=== PATIENT | male | born 1940 | race Caucasian/White ===

== ENCOUNTER 2021-11-11 06:11 | Inpatient (IN) | payer MEDICARE, OTHER ==
[2021-11-11] VITALS (13 sets, daily range): BP systolic 126–168; BP diastolic 63–92
[~2021-11-11] VITALS: Ht 175.3 cm; Wt 94.3 kg
[~2021-11-11 06:11] MED LIST: DICL1GEL72 EX; FLUT110A IN
[2021-11-11] MEDS ORDERED: ceFAZolin 1GM/50ML 100 ML IV ONE (06:23)
[2021-11-11] MEDS ORDERED: TRANEXAMIC ACID 20 ML ONE (06:48)
[2021-11-11] MEDS ORDERED: CELECOXIB 100 MG CAP PO ONE ×2 (07:00→07:30)
[2021-11-11] MEDS ORDERED: PREGABALIN CAPSULE 75 MG CAP PO ONE ×2 (07:00→07:30)
[2021-11-11] MEDS ORDERED: ACETAMINOPHEN IV 1000 MG/100ML (10MG/ML) IV ONE ×2 (07:00→07:30)
[2021-11-11] MEDS ORDERED: VANCOMYCIN HCL 1000 MG VL ONE (07:01)
[2021-11-11 07:27] LABS: Basophils # (auto) 0.1 10 ^3/uL (0-0.2); Basophils % (auto) 1.3 % (0.0-2.0); Eosinophils # (auto) 0.2 10 ^3/uL (0-0.8); Eosinophils % (auto) 4.2 % (0.0-7.0); Hematocrit 49.7 % (41.0-53.0); Hemoglobin 16.8 g/dL (13.5-17.5); Lymphocytes # (auto) 2.6 10 ^3/uL (0.4-5.4); Lymphocytes % (auto) 49.6 % (10.0-50.0); Mean Corpuscular Hemoglobin 32.8 pg (28.0-32.0); Mean Corpuscular Hgb Conc. 33.9 g/dL (32.0-36.0); Mean Corpuscular Volume 96.8 fL (80.0-100.0); Monocytes # (auto) 0.5 10 ^3/uL (0-1.3); Monocytes % (auto) 9.1 % (0.0-12.0); Neutrophils # (auto) 1.9 10 ^3/uL (1.6-8.6); Neutrophils % (auto) 35.8 % (37.0-80.0); Nucleated Red Blood Cells % 0.1 %; Red Blood Cells 5.13 10^6/uL (4.5-5.90); White Blood Cell 5.3 10^3/uL (4.4-10.8)
[2021-11-11 07:41] LABS: INR 1.01 (0.9-1.15); Partial Thromboplastin Time 26.8 sec (24.6-33.4)
[2021-11-11] MEDS ORDERED: ROPIVACAINE 0.5% (5MG/ML) 20ML AMPULE IJ ONE (08:09)
[2021-11-11] MEDS ORDERED: KETOROLAC TROMETH 30 MG/ML 1ML VIAL ONE (08:12)
[2021-11-11] MEDS ORDERED: MORPHINE SULF PF 5 MG/10 ML VIAL ONE (08:13)
[2021-11-11 08:21] LABS: Calcium 9.6 mg/dL (8.5-10.1)
[2021-11-11] MEDS ORDERED: fentaNYL CITRATE 100 MCG/2 ML VL ONE (08:33)
[2021-11-11] MEDS ORDERED: ONDANSETRON HCL 4 MG/2 ML VIAL ONE (08:33)
[2021-11-11] MEDS ORDERED: PHENYLEPHRINE HCL 10 MG/ML VL ONE (08:33)
[2021-11-11] MEDS ORDERED: GLYCOPYRROLATE 0.2 MG/ML 1ML VIAL ONE (08:33)
[2021-11-11] MEDS ORDERED: PROPOFOL 10 MG/ML 20 ML IV ONE (08:33)
[2021-11-11] MEDS ORDERED: BUPIVACAINE 0.5% P/F INJ 10 ML VIAL ONE (08:33)
[2021-11-11] MEDS ORDERED: ePHEDrine SULFATE 50 MG/ML AMP ONE ×2 (08:33→13:18)
[2021-11-11] MEDS ORDERED: MIDAZOLAM HCL 2MG/2ML 2ml VIAL (1mg/ml) ONE (08:33)
[2021-11-11] MEDS ORDERED: ACETAMINOPHEN 325 MG TAB PO PRN (10:00)
[2021-11-11] MEDS ORDERED: MORPHINE SULFATE INJ 2 MG/ml SYRG IV PRN (10:00)
[2021-11-11] MEDS ORDERED: OXYCODONE W/ ACETAMINOPHEN 5/325MG TABLET PO PRN (10:00)
[2021-11-11] MEDS ORDERED: ONDANSETRON HCL 4 MG/2 ML VIAL IV PRN ×3 (10:00→10:30)
[2021-11-11] MEDS ORDERED: BISACODYL 5 MG EC TAB PO PRN (10:00)
[2021-11-11] MEDS ORDERED: NITROGLYCERIN 0.4 MG SL TAB SL PRN (10:00)
[2021-11-11] MEDS ORDERED: ceFAZolin 1GM/50ML 50 ML IV SCH (10:00)
[2021-11-11] MEDS ORDERED: HYDROmorphone HCL 2 MG/ML VL/or syr IV PRN ×2 (10:00→14:00)
[2021-11-11] MEDS: LACTATED RINGER'S 1,000 ML IV SCH ×2 (10:25→20:00)
[2021-11-11] MEDS: ENOXAPARIN SOD 40 MG/0.4 ML SYRINGE SC SCH (10:25)
[2021-11-11] MEDS ORDERED: FAMOTIDINE (10MG/ML) 2ML VL IV PRN (10:30)
[2021-11-11] MEDS ORDERED: DexAMETHasone SOD PHOS 10MG/1ML VIAL INJ IV PRN (10:30)
[2021-11-11] MEDS ORDERED: diphenhdrAMINE HCL 50 MG/1 ML VL IV PRN (10:30)
[2021-11-11] MEDS ORDERED: KETOROLAC TROMETH 30 MG/ML 1ML VIAL IV PRN (10:30)
[2021-11-11] MEDS ORDERED: NALOXONE HCL 0.4 MG/ML VIAL IV PRN (10:30)
[2021-11-11] MEDS: DOCUSATE SOD 100 MG CAP PO SCH ×2 (12:40→21:02)
[2021-11-11] MEDS ORDERED: ePHEDrine SULFATE 50 MG/ML AMP IM ONE (13:05)
[2021-11-11] MEDS ORDERED: FAMOTIDINE (10MG/ML) 2ML VL IV ONE (13:05)
[2021-11-11] MEDS: SODIUM CHLOR 0.9% PF (SALINE LOCK) 10ML VIAL/SYR IV SCH ×2 (13:32→20:38)
[2021-11-11] MEDS: ceFAZolin 1GM/50ML 50 ML IV SCH ×2 (14:00→20:38)
[2021-11-11] MEDS ORDERED: PROMETHAZINE HCL 25 MG/ML 1ML IV ONE (19:00)
[2021-11-12] VITALS (12 sets, daily range): BP systolic 99–147; BP diastolic 60–70
[2021-11-12] MEDS: ceFAZolin 1GM/50ML 50 ML IV SCH (02:12)
[2021-11-12] MEDS: SODIUM CHLOR 0.9% PF (SALINE LOCK) 10ML VIAL/SYR IV SCH ×2 (06:03→14:43)
[2021-11-12] MEDS: LACTATED RINGER'S 1,000 ML IV SCH (06:04)
[2021-11-12 06:45] LABS: Hematocrit 42.8 % (41.0-53.0); Hemoglobin 14.5 g/dL (13.5-17.5)
[2021-11-12 07:01] LABS: Albumin 3.2 g/dL (3.4-5.0); Potassium 4.8 mmol/L (3.5-5.1)
[2021-11-12 07:07] LABS: BUN/Creatinine Ratio 17.7; Bilirubin, Total 0.6 mg/dL (0.2-1.0); Total Protein 6.5 g/dL (6.4-8.2)
[2021-11-12] MEDS: DOCUSATE SOD 100 MG CAP PO SCH (09:39)
[2021-11-12] MEDS: ENOXAPARIN SOD 40 MG/0.4 ML SYRINGE SC SCH (09:39)
== END 2021-11-12 16:00 | disposition home health service (06) | DRG 470 ==
LOC: SUR 06:11 → TELE 10:04 → TELE-CENTR 14:13
PROVIDERS: ADMIT Orthopaedic Surgery Adult Reconstructive Orthopaedic Surgery; ATTEND Internal Medicine
PROC: 8E0YXBZ Computer Assisted Procedure of Lower Extremity (ICD-10-PCS; 2021-11-11)
PROC: 0SRB06A Replacement of Left Hip Joint with Oxidized Zirconium on Polyethylene Synthetic Substitute, Uncemented, Open Approach (ICD-10-PCS; principal; 2021-11-11 08:38)
DX: M16.12 Unilateral primary osteoarthritis, left hip (principal); Z20.822 Contact with and (suspected) exposure to COVID-19; R00.1 Bradycardia, unspecified
CPT/HCPCS: 36415; 72170; 73502; 80048; 80053; 85014; 85018; 85025; 85610; 85730; 86850; 86900; 86901; 97110; 97116; 97530; G0378; J0131; J0690; J1885; J2250; J2405; J2704; J3490